=== PATIENT | male | born 1965 | race Caucasian/White ===

== ENCOUNTER → 2024-05-18 | Outpatient (CLI) | payer MEDICAID, SELFPAY ==
--- NOTE | 2024-05-18 16:27 | XR_ITS ---
Examination:Right hip AP, lateral, AP pelvis 3 views Technique: Hip AP lateral, AP pelvis, 3 views Exam date and time:May 18, 2024 1725 hours Compared to hip films dating to March 11, 2024 INDICATIONS: Acute intertrochanteric fracture right hip March 11, 2024, postop reduction internal fixation of this hip fracture March 13, 2024 FINDINGS: Significant healing intertrochanteric fracture right hip with stable and satisfactory alignment Orthopedic hardware satisfactory position IMPRESSION: Significant healing intertrochanteric fracture right hip with stable and satisfactory alignment.
--- NOTE | 2024-05-18 16:27 | XR_ITS ---
Examination: Right femur 2 views Technique one AP lateral right femur 2 views Exam date and time: May 18, 2024 1725 hours Compared to hip films dating to March 11, 2024 INDICATIONS: Acute intertrochanteric fracture right hip March 11, 2024, status post operative reduction internal fixation FINDINGS: Significant healing right hip fracture with satisfactory alignment Orthopedic hardware including long intramedullary panchito satisfactory position IMPRESSION: Significant healing right hip fracture with satisfactory
== END | disposition home or self-care (01) ==
PROVIDERS: PCP Family Medicine; Referring Provider Orthopaedic Surgery; Visit Provider Orthopaedic Surgery
DX: S72.001A Fracture of unspecified part of neck of right femur, initial encounter for closed fracture (principal); X58.XXXA Exposure to other specified factors, initial encounter
CPT/HCPCS: 73502; 73552

== ENCOUNTER 2025-06-06 17:20 | Emergency (ER) | payer MEDICAID, SELFPAY ==
[2025-06-06 17:24] VITALS: BP 124/76; PULSE 79; RESP 20; TEMP 36.6; O2SAT 98
--- NOTE | 2025-06-06 17:36 | PC.NURSE ---
PEDIATRIC ONCOLOGIST MARCY CAME TO NURSES DESK TO SAY HE LEFT AMA.
--- NOTE | 2025-06-06 17:42 | PD.EDADDENDU ---
Emergency Room Addendum Addendum Narrative: When I looked for the patient to start my evaluation, I was told the patient eloped. Baljit Drummond MD
== END 2025-06-06 17:45 | disposition left against medical advice (07) ==
LOC: SERX 17:45
PROVIDERS: Emergency Provider Emergency Medicine
DX: Z53.21 Procedure and treatment not carried out due to patient leaving prior to being seen by health care provider (principal)
CPT/HCPCS: 99281